=== PATIENT | male | born 1980 | race Caucasian/White ===

== ENCOUNTER 2017-04-01 07:01 | Day surgery (SDC) | payer BC ==
[~2017-04-01 07:01] MED LIST: LIDOCAINE W/ SODIUM BICARB 0.5 ML SYR ONE; Lactated Ringers 1,000 ML PRIMARY IV ONE; ceFAZolin Inj 2gm (Premix) 50 ML IV ONE
[2017-04-01] MEDS ORDERED: Lidocaine Inj 1% 20 ML ONE (07:47)
[2017-04-01] MEDS ORDERED: BUPivacaine Inj 0.5% PF (5mg/ml) 10ml vial ONE (07:47)
--- NOTE | 2017-04-01 07:53 | MINORPROC ---
Outpatient History & Physical Chief Complaint: Umbilical hernia Present Illness: Umbilical hernia Past History: See H&P and EMR History: General: WNL, HEENT: WNL, Respiratory: WNL, Cardiovascular: WNL, Gastrointestinal: ABN (umbilical hernia) Physical Exam: General: WNL, Chest/Lungs: WNL, Heart: WNL, Abdomen: ABN ( reducible umbilical hernia) Home Medications: Home Medications Medication Instructions Recorded Confirmed Type Zyrtec 1 tab PO QD 07/07/12 04/01/17 History Losartan Potassium [Cozaar] 1 tab PO QD #30 tab 03/16/15 04/01/17 Clinic Sertraline HCl [Zoloft] 1 tab ORAL QD #30 tab 03/16/15 04/01/17 Clinic Metoprolol Tartrate 1 tab PO DAILY tab 02/19/17 04/01/17 History Allergies/Adverse Reactions: Allergies Allergy/AdvReac Type Severity Reaction Status Date / Time No Known Allergies Allergy Unverified 02/19/17 11:52 Impression / Plan: Umbilical hernia Patient like the hernia repaired. Risks benefits procedure were explained to him he understands potential complications. Transfusion: Transfusion Not Anticipated Anesthesia Plans: Local ASA Class: Class 1 : Normal, Healthy Patient
[2017-04-01] MEDS ORDERED: MIDAZOLAM 5 MG/1 ML ONE (07:56)
[2017-04-01] MEDS ORDERED: fentaNYL Inj 250 MCG/5 ML VIAL ONE (07:56)
[2017-04-01] MEDS ORDERED: BUPivacaine Liposome/PF (Exparel) Inj 20ml vial INFIL ONE (08:31)
[2017-04-01] MEDS ORDERED: KETOROLAC 30 MG/1 ML VIAL ONE (08:31)
[2017-04-01] MEDS ORDERED: ONDANSETRON 4 MG/2 ML VIAL IVP PRN (08:39)
[2017-04-01] MEDS ORDERED: MAGNESIUM 400 MG/5 ML - 30 ML (MILK OF MAGNESIA) PO PRN (08:39)
[2017-04-01] MEDS ORDERED: NORMAL SALINE 10 ML SYRINGE FLUSH IVP PRN (08:39)
[2017-04-01] MEDS ORDERED: MORPHINE SULFATE 2 MG/1 ML IVP PRN (08:39)
--- NOTE | 2017-04-01 08:46 | GEN.OPNOTE ---
Operative Note Surgery Date: 04/01/17 Preoperative Diagnosis: Umbilical hernia Postoperative Diagnosis: Umbilical hernia Procedure: Repair of. Umbilical hernia using Prolene mesh Surgeon: Moustapha Bernard MD Anesthesia Provider: Marcio Alcala CRNA Anesthesia Type: Local, MAC Estimated Blood Loss (mL): 2 Fluids: 800 mL of LR please see anesthesia notes in EMR. 2 g Ancef Pathology: None sent Indications: Umbilical hernia Findings: Umbilical hernia preperitoneal fat Complications: Patient is brought in operative room placed supine position. Given IV sedation. Prepped draped sterile fashion. Timeout performed per protocol. I infiltrated 0.5 Marcaine and 2% Xylocaine 50-50 mixture for local anesthetic did a local regional block around umbilicus. Small incision was made below the umbilicus. Hemostasis obtained electrocautery dissection through the subcutaneous left cautery. Dissected the skin of the umbilicus off the hernia sac using electrocautery. Completely dissected the hernia sac away from the subcutaneous tissue. I had excised the hernia sac and reduced the contents of the hernia. I then freshened the fascial edges. I grasses the fascia with [place]'s. Closed the fascia with 0 Prolene continuous running suture. Cut a piece Prolene mesh appropriate size and shape. Did an onlay patch. So the mesh to the fascia using 0 Prolene continuous running suture. The skin the umbilicus to the fascia using 2-0 Vicryl simple sutures. Skin reapproximated using 4-0 Monocryl continuous running subcuticular stitch. I did infiltrate 20 mL of Exoprel postoperative pain control. Steri-Strips applied sterile dressings applied. Counts were correct. Patient transferred recovery room stable condition
[2017-04-01] MEDS: HYDROcodone-APAP 7.5 MG-325 MG TABLET PO PRN ×2 (09:10→09:15)
[2017-04-01] MEDS ORDERED: HYDROcodone-APAP 7.5 MG-325 MG TABLET PO ONE (09:15)
[2017-04-01 13:56] VITALS: RESP 16
[2017-04-01 14:05] VITALS: TEMP 97.5
== END 2017-04-01 09:39 | disposition home or self-care (01) ==
LOC: SDSC 07:01 → EDSTATUS 14:05
PROVIDERS: ATTEND Surgery
DX: K42.9 Umbilical hernia without obstruction or gangrene (principal)
CPT/HCPCS: 49585; C9290; J0690; J1885; J2250; J2704; J3010; J3490; J7120